=== PATIENT | female | born 2000 | race African-American/Black ===

== ENCOUNTER 2023-03-18 21:34 | Emergency (ER) | payer BC, SELFPAY ==
[2023-03-18 21:37] VITALS: BP 152/102
--- NOTE | 2023-03-18 22:15 | ED.GENMED ---
History of Present Illness
General
Chief Complaint: Problems
Source: patient
Time Seen by Provider: 03/18/23 22:02
Nursing documentation reviewed up to this point in time: agreed with
Travel History
Have you had any contact with someone who has COVID-19?: No
Do you have any symptoms of coronavirus? Fever > 100 degrees, chills, cough, shortness of breath, sore throat, loss of taste or smell, muscle aches, or headache?: No
History of Present Illness
History of Present Illness:
Pleasant 22-year-old female who presents after a fall today. Patient was walking up steps carrying her laundry bags when she tripped up the steps landing on her gravid abdomen into the step. Patient is 16 weeks . She sees PRESTIDIGITATOR at
[facility]. She did not contact her grain inspector. She is here for evaluation. She states that she has not felt the baby move all day including the period before the fall. She states that she typically does feel the baby move
daily. She denies any vaginal bleeding or discharge. Patient is 2 para 0, having 1 miscarriage. Patient plans to deliver at [facility]. Patient's past medical history significant for G6PD deficiency and -induced
hypertension. She is allergic to aspirin. Denies any other complaints. Denies any abdominal pain at this time
Review of Systems
Review of Systems
Allergies reviewed?: Yes
All Other Systems: ROS reviewed and negative except as documented in HPI and ROS
Constitutional: Reports no symptoms
EENT: Reports no symptoms
Respiratory: Reports no symptoms
Cardiac: Reports no symptoms
ABD/GI: Denies abdominal pain
: Denies dysuria, flank pain, difficulty voiding, bleeding, dark urine or discharge
Musculoskeletal: Reports no symptoms
Skin: Reports no symptoms
Neurological: Reports no symptoms
Endocrine: Reports no symptoms
Hematologic/Lymphatic: Reports no symptoms
Psychiatric: Reports no symptoms
Phy Exam
General Physical Exam
General Presentation: well appearing and no apparent distress
General Skin: warm and dry
General Habitus: normal
General Mental: alert
General Hydration: appears well hydrated
ENT Exam
ENT Exam: EOMI, pharynx normal, neck supple and normocephalic
Eye Exam
Eye Exam: PERRL, cornea clear and conjunctiva normal
Cardiovascular Exam
Cardiovascular Exam: regular rate/rhythm, no edema, no murmur and normal peripheral pulses
Pulmonary Exam
Pulmonary Exam: lungs clear, no respiratory distress, no rales, no crackles, no rhonchi, no stridor, no wheezing and no cough
Gastrointestinal Exam
Gastrointestinal Exam: normal bowel sounds, non tender, soft, no organomegaly, no pulsatile mass and non distended
Neurological Exam
Neurological Exam: alert, oriented x3, no motor deficits and speech normal
Musculoskeletal Exam
Musculoskeletal Exam: full ROM and no edema
Skin Exam
Skin Exam: normal color, warm/dry, no rash and no petechia
Psychiatric Exam
Psychiatric Exam: normal mood/affect
Course
Orders/Labs/Results
Orders:
Orders
03/18/23 22:05
US 2nd/3rd Trimester Urgent
Comment:
Reason For Exam: fall
03/18/23 22:10
Urinalysis Reflex To Culture Urgent
Date Specimen was Collected: 03/18/23
Time Specimen was Collected: 23:38
03/18/23 22:35
Beta HCG Quantitative Urgent
Is this a screen?: No
Complete Blood Count/With Diff Urgent
Comprehensive Metabolic Panel Urgent
Abnormal Lab Results
03/18/23
22:35
RBC 3.79 L 10^6/uL
(4.20-5.40)
Hgb 11.5 L g/dL
(12.0-16.0)
Hct 32.1 L %
(37.0-47.0)
Sodium 134 L mmol/L
(135-145)
Creatinine 0.5 L mg/dL
(0.6-1.0)
Glucose 104 H mg/dl
(70-99)
Calcium 10.3 H mg/dl
(8.4-10.2)
03/18/23 22:35
03/18/23 22:35
Vital Signs
Initial and Last Documented VS:
Initial Vital Signs
Temp Pulse Resp BP Pulse Ox
98.3 F 105 18 152/102 98
03/18/23 21:37 03/18/23 21:37 03/18/23 21:37 03/18/23 21:37 03/18/23 21:37
Last Documented Vital Signs
Temp Pulse Resp BP Pulse Ox
98.3 F 89 18 129/86 99
03/18/23 21:37 03/19/23 01:07 03/19/23 01:07 03/19/23 01:07 03/19/23 01:07
Information
Weeks gestation: Weeks: (16)
Location: Location: (uterus)
*Critical Care Note
Total Time (30-74mins, 75-104mins- exclusive of procedures): Not Applicable
Update Note
Update Note:
ULTRASOUND PELVIS
IMPRESSION:
Single living intrauterine gestation measuring 16 weeks 0 days. heart rate of 153 bpm.
Anterior placenta appears intact.
The cervix is closed and measures 4.9 cm.
4.9 cm posterior subserosal fibroid.
No free fluid.
ED Attending Note
-
Portions of this chart may have been created with voice recognition software.� Occasional wrong word or��sound alike� substitutions may have occurred due to the inherent limitations of voice recognition software.
Discharge Plan
Departure
Patient Disposition: Home (Routine Discharge)
Date of Disposition: 03/19/23
Time of Disposition: 01:01
Patient with high blood pressure during this ER visit?: Yes
Condition: Good
Discharge Problem:
, Traumatic injury during in second trimester
Instructions: Abdominal Trauma in ED, BLOOD PRESSURE
Referrals:
UNKNOWN - PT DOES,NOT KNOW [Family Provider] -
Activity Restrictions/Additional Instructions:
Please follow-up with your PRESTIDIGITATOR at [place] by calling the office tomorrow.
It was a pleasure meeting you and taking part in your care. We hope for your continued healing and wellness.
Please read discharge instructions in their entirety. However, they are for general education and may not describe your exact diagnosis at discharge. Information on your ER visit and medical conditions were discussed with you along with appropriate
follow up information...
If indicated, please take your medications as instructed and indicated on discharge paperwork.
Please schedule a follow up appointment as directed. Call to schedule an appointment
Please return to the emergency department with ANY change in, persisting, or worsening of symptoms. If any of your symptoms do not improve, or persist, or become more severe within 6-12 hours, please return to the emergency department for further
care.
Please return to the emergency department if you develop a headache, neck pain/stiffness, fever greater than 100.4F, chest pain, shortness of breath, persistent nausea, vomiting, slurred speech, difficulty walking, numbness/tingling, weakness, signs
of infection or any other symptoms that are worrisome to you.
If you have any questions or concerns please do not hesitate to call the Hospital at or E-mail me directly at [email or web address]
Interventions
Interventions:
*Risk Screen - Suicide Last Done: 03/18/23 21:37
*General Assessment Last Done: 03/18/23 21:37
*Neglect/Abuse Screening Last Done: 03/18/23 21:37
*ED COVID-19 Vaccine History Last Done: 03/18/23 22:24
*Nursing Disposition Last Done: 03/19/23 01:08
ED-Female Genitourinary Assessment Last Done: 03/18/23 22:24
Discharge Date and Time
Discharge Date/Time: 03/19/23 01:12
[2023-03-18 22:24] VITALS: BMI 49.8
[2023-03-18 22:37] VITALS: BP 127/88
[2023-03-18 22:49] LABS: % Basophils 0.3 % (0-2); % Eosinophils 0.8 % (0-6); % Immature Granulocytes 0.4 % (0-0.5); % Lymphocytes 32.4 % (20.5-51.1); % Monocytes 5.9 % (1.7-9.3); % Neutrophils 60.2 % (42.2-75.2); Absolute Eosinophils 0.1 10^3/uL (0-0.7); Absolute Lymphocytes 3.3 10^3/uL (1.2-3.4); Absolute Monocytes 0.6 10^3/uL (0.1-0.6); Absolute Neutrophils 6.1 10^3/uL (1.4-6.5); Hematocrit 32.1 % (37.0-47.0); Hemoglobin 11.5 g/dL (12.0-16.0); Mean Corp Hgb Conc. 35.8 g/dL (33.0-37.0); Mean Corpuscular Hgb 30.3 pg (27.0-31.0); Mean Corpuscular Volume 84.7 fL (81.0-99.0); Mean Platelet Volume 9.5 fL (7.4-10.4); Nucleated Red Blood Cells % 0 %; Platelet Count 379 10^3/uL (130-400); Red Blood Cell Count 3.79 10^6/uL (4.20-5.40); Red Cell Dist. Width 13.2 % (11.5-14.5); White Blood Cell Count 10.2 10^3/uL (4.8-10.8)
[2023-03-18 23:00] VITALS: BP 132/91
[2023-03-18 23:06] LABS: ALT (SGPT) 15 U/L (0-35); AST (SGOT) 19 U/L (14-36); Albumin 3.6 g/dl (3.5-5.0); Alkaline Phosphatase 49 U/L (38-126); Blood Urea Nitrogen 9 mg/dl (7-17); Calcium 10.3 mg/dl (8.4-10.2); Carbon Dioxide 22 mmol/L (22-30); Chloride 101 mmol/L (98-107); Estimated Creatinine Clearance > 125 ml/min; Glucose 104 mg/dl (70-99); Potassium 4.1 mmol/L (3.5-5.1); Sodium 134 mmol/L (135-145); Total Bilirubin 0.6 mg/dl (0.2-1.3); Total Protein 6.5 g/dl (6.3-8.2); eGFR > 60.00
[2023-03-19 00:44] LABS: Urine Albumin Negative (Neg - Trace); Urine Bilirubin Negative (Negative); Urine Character Clear (Clear); Urine Color Yellow; Urine Glucose Negative (Negative); Urine Ketone Negative (Negative); Urine Leukocyte Negative (Negative); Urine Nitrite Negative (Negative); Urine Occult Blood Negative (Negative); Urine Urobilinogen Negative (Neg - 1+); Urine pH 6.5 (5.0-9.0)
[2023-03-19 01:07] VITALS: BP 129/86
== END 2023-03-19 01:12 | disposition home or self-care (01) ==
LOC: EMR 21:34
PROVIDERS: EMERGENCY PHYSICIAN Student in an Organized Health Care Education/Training Program
DX: O99.112 Other diseases of the blood and blood-forming organs and certain disorders involving the immune mechanism complicating pregnancy, second trimester (principal); O34.12 Maternal care for benign tumor of corpus uteri, second trimester; D25.2 Subserosal leiomyoma of uterus; W01.0XXA Fall on same level from slipping, tripping and stumbling without subsequent striking against object, initial encounter; Y93.01 Activity, walking, marching and hiking; Z3A.16 16 weeks gestation of pregnancy
CPT/HCPCS: 99284; 76805; 80053; 81003; 84702; 85025